=== PATIENT | male | born 1985 | race American Indian/Alaskan Native ===

== ENCOUNTER 2019-07-12 19:39 | Emergency (ER) | payer SELFPAY ==
[~2019-07-12] VITALS: Ht 167.6 cm; Wt 72.6 kg
[2019-07-12 19:39] VITALS: BP 180/90
--- NOTE | 2019-07-12 19:39 | NUR ---
TO [facility], BROUGHT IN BY RATNA DELACRUZ FOR PREBOOK.
--- NOTE | 2019-07-12 19:48 | NUR ---
34 Y/O MALE BIB [place] [employer] FOR PREBOOK CLEARANCE. [employer] PT WAS RELEASED FROM [facility] THIS MORNING. DENIES PAIN, N/V/D. RR EVEN AND UNLABORED SITTING IN [facility]. [place] [employer] AT CHAIR SIDE
--- NOTE | 2019-07-12 19:49 | NUR ---
DR DURAN EXAMINING PT
[2019-07-12 19:57] VITALS: BP 140/95
--- NOTE | 2019-07-12 19:59 | NUR ---
Patient discharged with v/s stable. Written and verbal after care instructions given and explained. Patient verbalized understanding. Ambulatory with Shara DELACRUZ, [id number], in custody. All questions addressed prior to discharge. Advised to follow up with PMD.
== END 2019-07-12 19:57 ==
LOC: MED 19:39
DX: R45.851 Suicidal ideations (principal); Z02.89 Encounter for other administrative examinations
CPT/HCPCS: 99283